=== PATIENT | female | born 1995 | race Hispanic/Latino ===

== ENCOUNTER 2023-04-28 16:17 | Inpatient (IN) | payer MEDICAID ==
[~2023-04-28] VITALS: Ht 154.9 cm; Wt 57.2 kg
[2023-04-28] MEDS ORDERED: ONDANSETRON 4MG INJ IVP ONE (18:00)
[2023-04-28] MEDS ORDERED: LACTATED RINGERS 1000ML 1,000 ML IV ONE (18:00)
[2023-04-28] MEDS ORDERED: MORPHINE 4 MG SYG IVP ONE ×2 (18:00→20:00)
[2023-04-28 18:07] LABS: APPEARANCE,URINE CLOUDY (CLEAR); BILIRUBIN,URINE NEGATIVE (NEGATIVE); COLOR,URINE YELLOW (YELLOW); GLUCOSE, URINE (UA) NEGATIVE (NEGATIVE); KETONES,URINE 5 mg/dL (NEGATIVE); LEUKOCYTE ESTERASE ,URINE 250 Leu/uL (NEGATIVE); NITRATE,URINE NEGATIVE (NEGATIVE); OCCULT BLOOD,URINE SMALL (NEGATIVE); PROTEIN,URINE 20 mg/dL (NEGATIVE); UROBILINOGEN,URINE 0.2 mg/dL (0.2-1.0)
[2023-04-28 18:11] LABS: BACTERIA,URINE FEW /HPF (None Seen); MUCUS,URINE FEW LPF (None Seen); SQUAMOUS EPITHELIAL CELL,UR MOD /HPF (0-2); WBC,URINE 26-50 /HPF (0-1); YEAST,URINE BUDDING FEW /HPF (None Seen)
[2023-04-28 18:20] LABS: HCG,QUALITATIVE URINE NEGATIVE (NEGATIVE)
[2023-04-28] MEDS ORDERED: TAMS-1 PO (19:38)
[2023-04-28] MEDS ORDERED: IBUP-1493 PO (19:38)
[2023-04-28 19:51] LABS: BASOPHILS % (AUTO) 0.1 % (0.0-5.0); HEMATOCRIT 38.5 % (36-48); LYMPHOCYTES % (AUTO) 8.8 % (21.0-51.0); MEAN CORPUSCULAR HEMOGLOBIN 29.5 pg (27.0-33.0); MEAN CORPUSCULAR HGB CONC 33.5 g/dL (32.0-36.0); MEAN CORPUSCULAR VOLUME 87.9 fL (79-99); MONOCYTES % (AUTO) 2.4 % (3.0-13.0); NEUTROPHILS % (AUTO) 88.3 % (40.0-77.0); PLATELET COUNT (AUTO) 347 K/uL (130-400); RED BLOOD CELL COUNT(AUTO) 4.38 MIL/uL (4.00-5.50); RED CELL DISTRIBUTION WIDTH 13.2 % (11.0-15.5); WHITE BLOOD COUNT (AUTO) 13.4 K/uL (4.8-10.8)
[2023-04-28] MEDS ORDERED: CEFTRIAXONE 1G VIAL IVPB ONE ×2 (20:00)
[2023-04-28 20:02] LABS: CREATININE 0.9 mg/dL (0.5-1.5); POTASSIUM 3.9 mmol/L (3.5-5.1)
[2023-04-28 20:07] LABS: ALBUMIN 3.7 g/dL (3.5-5.0); TOTAL PROTEIN, SERUM 8.1 g/dL (6.0-8.3)
[2023-04-28] MEDS ORDERED: CEFTRIAXONE 1G VIAL 1 GM in 0.9%NACL 50ML 50 ML IV SCH (22:30)
[2023-04-28] MEDS ORDERED: TAMSULOSIN HCL 0.4 MG CAP.ER.24H PO ONE (22:30)
[2023-04-28] MEDS ORDERED: HYDROCODONE/ACETAMINOPHEN 5/325 MG TAB PO PRN (22:30)
[2023-04-28] MEDS ORDERED: ONDANSETRON 4MG INJ IV PRN (22:30)
[2023-04-28] MEDS ORDERED: MORPHINE 4 MG SYG IV PRN (22:30)
[2023-04-28] MEDS ORDERED: ACETAMINOPHEN 325 MG TAB PO PRN ×2 (22:30)
[2023-04-28] MEDS: KETOROLAC 10 MG TABLET PO SCH (23:08)
[2023-04-29] VITALS (9 sets, daily range): BP systolic 90–123; BP diastolic 42–81; PULSE 75–96; RESP 16–20; O2SAT 96–98
[2023-04-29] MEDS: KETOROLAC 10 MG TABLET PO SCH (04:38)
[2023-04-29 05:57] LABS: BASOPHILS % (AUTO) 0.3 % (0.0-5.0); EOSINOPHILS % (AUTO) 0.1 % (0.0-8.0); HEMATOCRIT 34.3 % (36-48); LYMPHOCYTES % (AUTO) 23.2 % (21.0-51.0); MEAN CORPUSCULAR HEMOGLOBIN 29.5 pg (27.0-33.0); MEAN CORPUSCULAR HGB CONC 33.2 g/dL (32.0-36.0); MEAN CORPUSCULAR VOLUME 88.9 fL (79-99); MONOCYTES % (AUTO) 9.2 % (3.0-13.0); NEUTROPHILS % (AUTO) 66.9 % (40.0-77.0); PLATELET COUNT (AUTO) 320 K/uL (130-400); RED BLOOD CELL COUNT(AUTO) 3.86 MIL/uL (4.00-5.50); RED CELL DISTRIBUTION WIDTH 13.2 % (11.0-15.5); WHITE BLOOD COUNT (AUTO) 10.1 K/uL (4.8-10.8)
[2023-04-29 06:10] LABS: CREATININE 0.7 mg/dL (0.5-1.5); POTASSIUM 3.7 mmol/L (3.5-5.1)
[2023-04-29] MEDS: FAMOTIDINE 20MG TAB PO SCH ×2 (08:22→22:21)
[2023-04-29] MEDS: TAMSULOSIN HCL 0.4 MG CAP.ER.24H PO SCH (08:22)
[2023-04-29] MEDS: ENOXAPARIN SODIUM 40 MG/0.4 ML SYRINGE SQ SCH (08:23)
[2023-04-29] MEDS ORDERED: KETOROLAC 15MG/ML VIAL (15MG/ML) IM PRN (10:00)
[2023-04-29] MEDS: PHENAZOPYRIDINE HCL 200 MG TABLET PO SCH ×2 (11:08→17:46)
[2023-04-29] MEDS: LACTATED RINGERS 1000ML 1,000 ML IV SCH (15:52)
[2023-04-29] MEDS ORDERED: PEG 3350/NA SULF,BICARB,CL/KCL 4000 ML SOLN PO ONE (19:00)
[2023-04-29] MEDS: CEFTRIAXONE 1G VIAL IVPB SCH (22:21)
[2023-04-30] VITALS (7 sets, daily range): BP systolic 89–114; BP diastolic 51–88; PULSE 62–87; RESP 16–20; O2SAT 98–99
[2023-04-30] MEDS: PHENAZOPYRIDINE HCL 200 MG TABLET PO SCH ×3 (02:55→21:05)
[2023-04-30] MEDS: LACTATED RINGERS 1000ML 1,000 ML IV SCH ×2 (09:12→21:05)
[2023-04-30] MEDS: ENOXAPARIN SODIUM 40 MG/0.4 ML SYRINGE SQ SCH (09:18)
[2023-04-30] MEDS ORDERED: IOHEXOL-350 75 ML VIAL IV ONE (10:10)
[2023-04-30] MEDS: FAMOTIDINE 20MG TAB PO SCH ×2 (13:35→21:05)
[2023-04-30] MEDS: TAMSULOSIN HCL 0.4 MG CAP.ER.24H PO SCH (13:35)
[2023-04-30] MEDS: CEFTRIAXONE 1G VIAL IVPB SCH (21:05)
[2023-05-01 03:50] VITALS: BP 97/66; PULSE 55; RESP 18
[2023-05-01] MEDS: LACTATED RINGERS 1000ML 1,000 ML IV SCH (04:40)
[2023-05-01] MEDS: PHENAZOPYRIDINE HCL 200 MG TABLET PO SCH (06:08)
[2023-05-01 06:28] LABS: HEMATOCRIT 35.4 % (36-48); MEAN CORPUSCULAR HEMOGLOBIN 29.7 pg (27.0-33.0); MEAN CORPUSCULAR HGB CONC 33.9 g/dL (32.0-36.0); MEAN CORPUSCULAR VOLUME 87.6 fL (79-99); RED BLOOD CELL COUNT(AUTO) 4.04 MIL/uL (4.00-5.50); RED CELL DISTRIBUTION WIDTH 13.2 % (11.0-15.5); WHITE BLOOD COUNT (AUTO) 8.1 K/uL (4.8-10.8)
[2023-05-01 06:39] LABS: ALBUMIN 3.1 g/dL (3.5-5.0); CREATININE 0.6 mg/dL (0.5-1.5); MAGNESIUM 1.6 mg/dL (1.80-2.40); POTASSIUM 3.7 mmol/L (3.5-5.1); TOTAL PROTEIN, SERUM 7.2 g/dL (6.0-8.3)
[2023-05-01 07:58] VITALS: BP 113/66; PULSE 77; RESP 20
[2023-05-01 08:20] VITALS: O2SAT 96
[2023-05-01] MEDS: TAMSULOSIN HCL 0.4 MG CAP.ER.24H PO SCH (09:28)
[2023-05-01] MEDS: ENOXAPARIN SODIUM 40 MG/0.4 ML SYRINGE SQ SCH (09:29)
[2023-05-01] MEDS: FAMOTIDINE 20MG TAB PO SCH (09:29)
[2023-05-01 12:02] VITALS: BP 106/63; PULSE 82; RESP 16
== END 2023-05-01 14:25 | disposition home or self-care (01) | DRG 463 ==
LOC: EDH 16:17 → EDHIP 16:18 → WSH 04-29 00:37
PROVIDERS: ADMIT Internal Medicine; ATTEND Internal Medicine
DX: N13.6 Pyonephrosis (principal); R65.10 Systemic inflammatory response syndrome (SIRS) of non-infectious origin without acute organ dysfunction; Z20.822 Contact with and (suspected) exposure to COVID-19
CPT/HCPCS: 36415; 74176; 74400; 80048; 80053; 81001; 81025; 83690; 83735; 85025; 85027; 87088; 87635; G0378; J0696; J1650; J2270; J2405; J7120; Q9967